=== PATIENT | female | born 1990 | race Caucasian/White ===

== ENCOUNTER 2020-07-29 08:54 | Outpatient (RCR) | payer OTHER, SELFPAY | END 2020-08-17 11:00 | disposition home or self-care (01) | LOC: HO.WCC 08:54 | PROVIDERS: Visit Provider Physician Assistant | DX: T23.201A Burn of second degree of right hand, unspecified site, initial encounter (principal); T31.0 Burns involving less than 10% of body surface; Z87.891 Personal history of nicotine dependence; Z79.899 Other long term (current) drug therapy | CPT/HCPCS: 16020; 97597; 99203; 99212 ==

== ENCOUNTER → 2020-08-24 13:51 | Outpatient (BNVA) | payer OTHER, SELFPAY | PROVIDERS: PCP Internal Medicine; Visit Provider Orthopaedic Surgery | DX: T23.201D Burn of second degree of right hand, unspecified site, subsequent encounter (principal) | CPT/HCPCS: 99202 ==

== ENCOUNTER 2023-08-11 01:24 | Emergency (ER) | payer OTHER, SELFPAY ==
[2023-08-11 01:27] VITALS: BP 129/72; PULSE 100; RESP 16; TEMP 36.1; O2SAT 95; BMI 26.0
[2023-08-11] MEDS: Diphth,Pertus(ACell),Tet Adult 0.5 ML SYRINGE IM (02:09)
[2023-08-11 04:00] VITALS: BP 114/64; PULSE 93; RESP 16; TEMP 36.6; O2SAT 95
--- NOTE | 2023-08-11 05:13 | ED_ITS ---
HPI - Wound/Laceration General Chief Complaint: Wound/Laceration Stated Complaint: rt hand pinkie finger cut Time Seen by Provider: 08/11/23 05:12 Source: patient Mode of arrival: ambulatory Limitations: no limitations History of Present Illness HPI narrative: 32-year-old female who presents emergency department for evaluation of lacerations to her left and right 5th finger. She states that she was on a swing and her fingers got pinched between the metal chains. Patient sustained a C-shaped laceration to the distal tip of the right 5th finger and a superficial laceration to the tip of the left 5th finger. Patient did not know when her last tetanus shot was given therefore she was given a Tdap vaccination. Related Data Home Medications ?Medication ?Instructions ?Recorded ?Confirmed adalimumab 10 mg/0.1 mL See Rx Instructions subcut .COMPLEX 08/24/20 subcutaneous syringe kit (Humira(CF)) sertraline 25 mg tablet 25 mg PO DAILY 08/24/20 Allergies Allergy/AdvReac Type Severity Reaction Status Date / Time No Known Allergies Allergy Verified 08/11/23 01:28 Review of Systems Review of Systems: Yes all other systems are reviewed and are negative [facility] Past Medical History Medical History Anxiety Social History Social History (Updated 08/24/20 @ 14:14 by Holley Stevens [facility]) Advance Directives: No Advance Directives Information Provided: No Current occupational status: employed 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 Fingers neurovascular intact Left 5th finger , the patient has a superficial C shaped laceration measuring 0.5 cm. Fingers neurovascularly intact Medications Administered Discontinued Medications Generic Name Dose Route Start Last Admin Trade Name Freq PRN Reason Stop Dose Admin Diphtheria/Tetanus/Acell Pertussis 0.5 ml 08/11/23 01:52 08/11/23 02:09 Diphth,Pertus(Acell),Tet Adult 0.5 Ml Syringe IM 08/11/23 01:53 0.5 ml .ONCE ONE Administration Lidocaine HCl 5 ml 08/11/23 05:13 08/11/23 05:28 Lidocaine Hcl 1 % Mpf 5 Ml Vial INFILTRATI 08/11/23 05:14 5 ml ONCE STA Administration Lidocaine HCl 5 ml 08/11/23 05:14 08/11/23 05:28 Lidocaine Hcl 1 % Mpf 5 Ml Vial INFILTRATI 08/11/23 05:15 5 ml ONCE STA Administration Medical Decision Making Medical Decision Making MDM Narrative: 32-year-old female who presents emergency department for evaluation of lacerations to her left and right 5th fingers involving the distal aspect. Patient's did not know when her last tetanus shot was given therefore she was given a Tdap vaccination. Differential diagnosis: ?Includes but is not limited to suturable laceration, neurovascular injury, tendon injury, Course: The patient's right finger laceration was repaired with 5.0 nylon sutures x8. The patient's left 5th finger laceration was repaired with skin glue Patient was given printed and verbal instructions and discharged home. Procedures Procedure Narrative Procedure Narrative: Right 5th finger 1.5 cm C shaped laceration repair procedure: Patient's laceration was cleaned with normal saline, prepped with Betadine, finger was anesthetized using a digital block with 7 cc of 1% lidocaine. The wound was then explored, there were no foreign bodies in the wound. The wound was a crush injury and the fat was debrided. The wound was then closed in 1 layer using 5.0 Vicryl sutures x8 sutures. The wound was then dressed with bacitracin and a sterile nonstick dressing. Left 5th finger 0.75 cm C shaped laceration repair procedure Patient's laceration was cleaned with normal saline. The wound was then closed with skin glue. The patient tolerated the procedure well. Discharge Plan Discharge Clinical Impression: Laceration of left little finger, Laceration of right little finger Patient Disposition: Home, Self-Care Discharge Date/Time: 08/11/23 06:35 Print Language: Chinese
[2023-08-11] MEDS: Lidocaine HCl 1 % MPF 5 ML VIAL INFILTRATI ×2 (05:28)
[2023-08-11 06:00] VITALS: BP 116/70; PULSE 90; RESP 16; TEMP 36.6; O2SAT 97
[2023-08-11] MEDS: Bacitracin Oint 0.9 GM PACKET 1 APPL TOPICAL (06:27)
[2023-08-11 06:28] VITALS: BP 116/70; PULSE 90; RESP 16; TEMP 36.6; O2SAT 97
== END 2023-08-11 06:35 | disposition home or self-care (01) ==
PROVIDERS: Emergency Provider Emergency Medicine Emergency Medical Services
DX: S61.216A Laceration without foreign body of right little finger without damage to nail, initial encounter (principal); S60.416A Abrasion of right little finger, initial encounter; W26.9XXA Contact with unspecified sharp object(s), initial encounter; Y93.9 Activity, unspecified; Y92.89 Other specified places as the place of occurrence of the external cause; Y99.8 Other external cause status
CPT/HCPCS: 12041; 90471; 90715; 99283; 99284